=== PATIENT | female | born 1990 | race African-American/Black ===

== ENCOUNTER → 2018-05-13 07:33 | Outpatient (CLI) | payer OTHER, SELFPAY ==
--- NOTE | 2018-05-13 | DI.MRI.S_ITS ---
PROCEDURE: MR WRIST RT WO CON INDICATIONS: PAIN IN RIGHT WRIST TECHNIQUE: Noncontrast coronal proton density fast spin echo and T2 fast spin echo with fat saturation; coronal 3-D gradient echo, axial T1 spin echo and T2 fast spin echo with fat saturation, sagittal T1 spin echo through the wrist. COMPARISON: None. FINDINGS: Image quality: Excellent. Bones and cartilage: The carpal bones are normally aligned. There is subtle edema involving the volar and radial aspect of trapezium is seen with no discrete fracture line, and is suggestive of subtle bony contusion. No other area of abnormal marrow signal is seen. No fracture or dislocation. No evidence for avascular necrosis. Overlying cartilage surfaces appear normal. Carpal ligaments: The scapholunate and lunotriquetral ligaments appear intact. In the absence of intra-articular contrast, the extrinsic carpal ligaments are not well identified. On sagittal images, the pisohamate ligament appears intact. Triangular fibrocartilage complex: The triangular fibrocartilage appears intact. The adjacent meniscal homolog appears normal in the absence of intra-articular contrast. The extensor carpi ulnaris tendon is normal in location and morphology. Tendons and soft tissues: The carpal tunnel structures appear normal, including the median nerve. The ulnar nerve appears normal within Guyon's canal. All six extensor tendon compartments demonstrate normal morphology, without pathologic tendon sheath fluid. No soft tissue ganglion cysts. IMPRESSION: 1. Possible subtle bony contusion involving the volar and radial aspect of trapezium. No other area of abnormal marrow signal. No fracture or dislocation. 2. Wrist tendons and ligaments are grossly intact. Fraying of the fibrocartilage complex is grossly intact. Dictated by: Cristian Hollins M.D. on 05/13/2018 at 9:12 Approved by: Cristian Hollins M.D. on 05/13/2018 at 13:23
== END ==
PROVIDERS: PCP Physician Assistant Medical; Visit Provider Family Medicine
DX: M25.531 Pain in right wrist (principal)
CPT/HCPCS: 73221

== ENCOUNTER → 2019-07-27 15:46 | Outpatient (CLI) | payer BC, SELFPAY | DX: Z23 Encounter for immunization (principal) | CPT/HCPCS: 90471; 90682 ==

== ENCOUNTER → 2019-12-06 17:38 | Outpatient (CLI) | payer OTHER, SELFPAY ==
[2019-12-06 18:21] LABS: Influenza A - CEPHEID Flu A NEGATIVE (NEGATIVE); Influenza B - CEPHEID Flu B NEGATIVE (NEGATIVE)
== END ==
LOC: LAB 17:38
PROVIDERS: Visit Provider Nurse Practitioner
DX: R68.89 Other general symptoms and signs (principal)
CPT/HCPCS: 87502